=== PATIENT | male | born 1985 | race Caucasian/White ===

== ENCOUNTER 2020-12-26 20:26 | Inpatient (IN) | payer OTHER ==
[2020-12-26 20:45] VITALS: BMI 23.0
[2020-12-26] MEDS ORDERED: ONDANSETRON *ODT* 4 MG TABLET SL PRN (22:02)
[2020-12-26] MEDS ORDERED: NICOTINE POLACRILEX 2 MG GUM BUC PRN (22:02)
[2020-12-26] MEDS ORDERED: MENTHOL/PHENOL 1 EACH UD MM PRN (22:02)
[2020-12-26] MEDS ORDERED: MAGNESIUM HYDROX 2400MG/30ML ORAL SUSPENSION 30 ML CUP PO PRN (22:02)
[2020-12-26] MEDS ORDERED: MAG HYDROX/AL HYDROX/SIMETH 30 ML UNIT-DOSE CUP PO PRN (22:02)
[2020-12-26] MEDS ORDERED: IBUPROFEN 400 MG TABLET (FP) PO PRN (22:02)
[2020-12-26] MEDS ORDERED: MAGNESIUM CITRATE 300 ML BOTTLE PO PRN (22:02)
[2020-12-26] MEDS ORDERED: BISMUTH SUBSALICYLATE 524 MG/30 ML PO PRN (22:02)
[2020-12-26] MEDS ORDERED: ACETAMINOPHEN 325 MG TABLET (FP) PO PRN ×2 (22:02)
[2020-12-26] MEDS ORDERED: methaDONE HCL 10 MG TABLET (FOR DETOX USE ONLY) PO ONE (22:04)
[2020-12-26] MEDS ORDERED: cloNIDine HCL 0.1 MG TABLET PO PRN (22:04)
[2020-12-26] MEDS: METHOCARBAMOL 500 MG TABLET PO PRN (23:10)
[2020-12-26] MEDS: hydrOXYzine PAMOATE 25 MG CAPSULE (FP) PO PRN (23:10)
[2020-12-27] MEDS ORDERED: methaDONE HCL 10 MG TABLET (FOR DETOX USE ONLY) ONE (09:28)
[2020-12-27] MEDS: PRENATAL VITAMINS W/ FOLIC ACID TABLET (FP) PO SCH (10:23)
[2020-12-27] MEDS: hydrOXYzine PAMOATE 25 MG CAPSULE (FP) PO PRN ×2 (10:23→22:09)
[2020-12-27] MEDS: METHOCARBAMOL 500 MG TABLET PO PRN (10:23)
[2020-12-27] MEDS: diazePAM 5 MG TABLET PO PRN ×3 (10:25→22:08)
[2020-12-27 10:32] LABS: ALBUMIN 3.3 g/dl (3.4-5.0); BLOOD UREA NITROGEN 13.7 mg/dL (7-18); HEMATOCRIT 41.4 % (35.4-49); HEMOGLOBIN 13.8 GM/dL (11.7-16.9); MCH 31.7 pg (25.7-33.7); MCHC 33.4 g/dl (32.0-35.9); MEAN CELL VOLUME 94.8 fl (80-96); MEAN PLT VOLUME 8.8 fl (7.5-11.1); PLATELET COUNT 206 10^3/uL (134-434); RBC 4.36 M/mm3 (4.00-5.60); RDW 13.2 % (11.9-15.9); WHITE BLOOD COUNT 7.3 K/mm3 (4.0-10.0)
[2020-12-27 10:36] LABS: BILIRUBIN,TOTAL 0.2 mg/dL (0.2-1); TOT PROT 6.3 g/dl (6.4-8.2)
[2020-12-27] MEDS: MELATONIN 5 MG TABLETS PO SCH (22:09)
[2020-12-27] MEDS: THIAMINE HCL 100 MG TABLET (FP) PO SCH (22:09)
[2020-12-28] MEDS ORDERED: methaDONE HCL 10 MG TABLET (FOR DETOX USE ONLY) PO ONE (10:00)
[2020-12-28] MEDS: PRENATAL VITAMINS W/ FOLIC ACID TABLET (FP) PO SCH (10:09)
[2020-12-28] MEDS: NICOTINE 10 MG CARTRIDGE (INHALER) IH PRN ×2 (12:51→22:36)
[2020-12-28] MEDS: THIAMINE HCL 100 MG TABLET (FP) PO SCH (22:37)
[2020-12-28] MEDS: MELATONIN 5 MG TABLETS PO SCH (22:37)
[2020-12-28] MEDS: diazePAM 5 MG TABLET PO PRN (22:40)
[2020-12-29] MEDS ORDERED: methaDONE HCL 10 MG TABLET (FOR DETOX USE ONLY) ONE (08:53)
[2020-12-29] MEDS: PRENATAL VITAMINS W/ FOLIC ACID TABLET (FP) PO SCH (09:39)
[2020-12-29] MEDS: NICOTINE 10 MG CARTRIDGE (INHALER) IH PRN ×2 (15:56→22:25)
[2020-12-29] MEDS: THIAMINE HCL 100 MG TABLET (FP) PO SCH (22:26)
[2020-12-29] MEDS: diazePAM 5 MG TABLET PO PRN (22:26)
[2020-12-29] MEDS: MELATONIN 5 MG TABLETS PO SCH (22:26)
[2020-12-29] MEDS: METHOCARBAMOL 500 MG TABLET PO PRN (22:27)
[2020-12-29] MEDS: hydrOXYzine PAMOATE 25 MG CAPSULE (FP) PO PRN (22:27)
[2020-12-30] MEDS: diazePAM 5 MG TABLET PO PRN (09:01)
[2020-12-30] MEDS ORDERED: methaDONE HCL 10 MG TABLET (FOR DETOX USE ONLY) PO ONE (10:00)
[2020-12-30] MEDS: METHOCARBAMOL 500 MG TABLET PO PRN (10:13)
[2020-12-30] MEDS: PRENATAL VITAMINS W/ FOLIC ACID TABLET (FP) PO SCH (10:14)
[2020-12-30] MEDS: hydrOXYzine PAMOATE 25 MG CAPSULE (FP) PO PRN (14:29)
[2020-12-30] MEDS: MELATONIN 5 MG TABLETS PO SCH (22:27)
[2020-12-30] MEDS: THIAMINE HCL 100 MG TABLET (FP) PO SCH (22:27)
[2020-12-31 08:42] VITALS: BP 117/62; PULSE 71; TEMP 96.8
[2020-12-31] MEDS: NICOTINE 10 MG CARTRIDGE (INHALER) IH PRN (09:16)
[2020-12-31] MEDS: PRENATAL VITAMINS W/ FOLIC ACID TABLET (FP) PO SCH (09:59)
== END 2020-12-31 11:41 | disposition other institution (70) | DRG 773 ==
LOC: YASAS 20:26 → Y6N 21:51 → Y3N 22:19
PROVIDERS: ADMIT Allergy & Immunology; ATTEND Allergy & Immunology
PROC: HZ2ZZZZ Detoxification Services for Substance Abuse Treatment (ICD-10-PCS; principal; 2020-12-26)
DX: F11.23 Opioid dependence with withdrawal (principal); F14.20 Cocaine dependence, uncomplicated; F18.288 Inhalant dependence with other inhalant-induced disorder; F16.20 Hallucinogen dependence, uncomplicated; F12.20 Cannabis dependence, uncomplicated; F17.210 Nicotine dependence, cigarettes, uncomplicated; F19.24 Other psychoactive substance dependence with psychoactive substance-induced mood disorder; Z86.59 Personal history of other mental and behavioral disorders; Z91.14 Patient's other noncompliance with medication regimen; Z59.00 Homelessness unspecified; Z56.0 Unemployment, unspecified
CPT/HCPCS: 36415; 80053; 85027; 86780; 93005; 93010; C9803; U0003; U0005

== ENCOUNTER 2020-12-31 11:46 | Inpatient (IN) | payer OTHER ==
[2020-12-31] MEDS ORDERED: guaiFENesin 200 MG/10 ML 10 ML UNIT-DOSE CUPS PO PRN (12:10)
[2020-12-31] MEDS ORDERED: LOPERAMIDE HCL 2 MG CAPSULE PO PRN (12:10)
[2020-12-31] MEDS ORDERED: ACETAMINOPHEN 325 MG TABLET (FP) PO PRN (12:10)
[2020-12-31] MEDS ORDERED: MAG HYDROX/AL HYDROX/SIMETH 30 ML UNIT-DOSE CUP PO PRN (12:10)
[2020-12-31] MEDS ORDERED: P-EPHED 60MG/TRIPROLIDI 2.5MG TABLET PO PRN (12:10)
[2020-12-31] MEDS ORDERED: MAGNESIUM CITRATE 300 ML BOTTLE PO PRN (12:10)
[2020-12-31] MEDS ORDERED: IBUPROFEN 400 MG TABLET (FP) PO PRN (12:10)
[2020-12-31] MEDS ORDERED: MENTHOL/PHENOL 1 EACH UD MM PRN (12:10)
[2020-12-31] MEDS ORDERED: MAGNESIUM HYDROX 2400MG/30ML ORAL SUSPENSION 30 ML CUP PO PRN (12:10)
[2020-12-31] MEDS: NICOTINE 10 MG CARTRIDGE (INHALER) IH PRN (17:59)
[2020-12-31] MEDS: THIAMINE HCL 100 MG TABLET (FP) PO SCH (21:18)
[2020-12-31] MEDS: MELATONIN 5 MG TABLETS PO SCH (21:18)
[2021-01-01] MEDS: NICOTINE 10 MG CARTRIDGE (INHALER) IH PRN (10:31)
[2021-01-01] MEDS: PRENATAL VITAMINS W/ FOLIC ACID TABLET (FP) PO SCH (10:31)
[2021-01-01] MEDS ORDERED: FLU VACC QS2021-22(6MOS UP)/PF 60 MCG/0.5 ML SYRINGE IM ONE (12:00)
[2021-01-01 12:13] LABS: HIV INTERPRETATION NEGATIVE (NEGATIVE)
[2021-01-01] MEDS: MELATONIN 5 MG TABLETS PO SCH (21:07)
[2021-01-01] MEDS: THIAMINE HCL 100 MG TABLET (FP) PO SCH (21:07)
[2021-01-02] MEDS: PRENATAL VITAMINS W/ FOLIC ACID TABLET (FP) PO SCH (11:15)
[2021-01-02] MEDS: NICOTINE 10 MG CARTRIDGE (INHALER) IH PRN (11:15)
[2021-01-02] MEDS ORDERED: SUVOREXANT 10 MG TABLET PO ONE (21:39)
[2021-01-02] MEDS: THIAMINE HCL 100 MG TABLET (FP) PO SCH (21:39)
[2021-01-02] MEDS: SUVOREXANT 10 MG TABLET PO PRN (21:39)
[2021-01-03] MEDS: NICOTINE 10 MG CARTRIDGE (INHALER) IH PRN ×2 (10:00→21:07)
[2021-01-03] MEDS: PRENATAL VITAMINS W/ FOLIC ACID TABLET (FP) PO SCH (10:00)
[2021-01-03] MEDS: SUVOREXANT 10 MG TABLET PO PRN (21:07)
[2021-01-03] MEDS: THIAMINE HCL 100 MG TABLET (FP) PO SCH (21:07)
[2021-01-04] MEDS: PRENATAL VITAMINS W/ FOLIC ACID TABLET (FP) PO SCH (10:25)
[2021-01-04] MEDS: THIAMINE HCL 100 MG TABLET (FP) PO SCH (21:45)
[2021-01-04] MEDS: SUVOREXANT 10 MG TABLET PO PRN (21:46)
[2021-01-05] MEDS: PRENATAL VITAMINS W/ FOLIC ACID TABLET (FP) PO SCH (09:56)
[2021-01-05] MEDS: THIAMINE HCL 100 MG TABLET (FP) PO SCH (21:09)
[2021-01-05] MEDS: SUVOREXANT 10 MG TABLET PO PRN (21:10)
[2021-01-06] MEDS: PRENATAL VITAMINS W/ FOLIC ACID TABLET (FP) PO SCH (10:31)
[2021-01-06] MEDS: NICOTINE 10 MG CARTRIDGE (INHALER) IH PRN (10:31)
[2021-01-06] MEDS: THIAMINE HCL 100 MG TABLET (FP) PO SCH (21:27)
[2021-01-06] MEDS: SUVOREXANT 10 MG TABLET PO PRN (21:28)
[2021-01-07] MEDS ORDERED: NALTREXONE HCL 50 MG TABLET PO SCH (10:00)
[2021-01-07] MEDS: PRENATAL VITAMINS W/ FOLIC ACID TABLET (FP) PO SCH (10:04)
[2021-01-07] MEDS: SUVOREXANT 10 MG TABLET PO PRN (21:06)
[2021-01-07] MEDS: THIAMINE HCL 100 MG TABLET (FP) PO SCH (21:06)
[2021-01-08] MEDS: NALTREXONE HCL 50 MG TABLET PO SCH (10:33)
[2021-01-08] MEDS: PRENATAL VITAMINS W/ FOLIC ACID TABLET (FP) PO SCH (10:33)
[2021-01-08] MEDS: SUVOREXANT 10 MG TABLET PO PRN (21:39)
[2021-01-08] MEDS: THIAMINE HCL 100 MG TABLET (FP) PO SCH (21:41)
[2021-01-09] MEDS: PRENATAL VITAMINS W/ FOLIC ACID TABLET (FP) PO SCH (10:04)
[2021-01-09] MEDS: NALTREXONE HCL 50 MG TABLET PO SCH (10:04)
[2021-01-09] MEDS: THIAMINE HCL 100 MG TABLET (FP) PO SCH (21:09)
[2021-01-09] MEDS: SUVOREXANT 10 MG TABLET PO PRN (21:09)
[2021-01-10] MEDS ORDERED: NALTREXONE MICROSPHERES (VIVITROL) 380 MG DISP.SYRIN IM ONE (10:00)
[2021-01-10] MEDS: PRENATAL VITAMINS W/ FOLIC ACID TABLET (FP) PO SCH (10:45)
[2021-01-10] MEDS: NICOTINE 10 MG CARTRIDGE (INHALER) IH PRN (21:27)
[2021-01-10] MEDS: SUVOREXANT 10 MG TABLET PO PRN (21:27)
[2021-01-10] MEDS: THIAMINE HCL 100 MG TABLET (FP) PO SCH (21:27)
[2021-01-11] MEDS: PRENATAL VITAMINS W/ FOLIC ACID TABLET (FP) PO SCH (10:12)
[2021-01-11] MEDS ORDERED: hydrOXYzine PAMOATE 25 MG CAPSULE (FP) PO PRN (12:52)
[2021-01-11] MEDS: THIAMINE HCL 100 MG TABLET (FP) PO SCH (21:22)
[2021-01-11] MEDS: SUVOREXANT 10 MG TABLET PO PRN (21:23)
[2021-01-11] MEDS: NICOTINE 10 MG CARTRIDGE (INHALER) IH PRN (21:23)
[2021-01-12] MEDS: PRENATAL VITAMINS W/ FOLIC ACID TABLET (FP) PO SCH (10:55)
[2021-01-12] MEDS: THIAMINE HCL 100 MG TABLET (FP) PO SCH (21:31)
[2021-01-12] MEDS: SUVOREXANT 10 MG TABLET PO PRN (21:32)
[2021-01-13 06:58] VITALS: BP 125/88; PULSE 86; TEMP 98.6
[2021-01-13] MEDS: NICOTINE 10 MG CARTRIDGE (INHALER) IH PRN (10:45)
[2021-01-13] MEDS: PRENATAL VITAMINS W/ FOLIC ACID TABLET (FP) PO SCH (10:46)
[2021-01-13] MEDS ORDERED: SELENIUM SULFIDE 2.5% LOTION 4 OZ. TP SCH (12:15)
== END 2021-01-13 14:48 | disposition home or self-care (01) | DRG 772 ==
LOC: YASAS 11:46 → Y3W 11:47
PROVIDERS: ADMIT Allergy & Immunology; ATTEND Allergy & Immunology
PROC: HZ42ZZZ Group Counseling for Substance Abuse Treatment, Cognitive-Behavioral (ICD-10-PCS; principal; 2020-12-31)
DX: F11.20 Opioid dependence, uncomplicated (principal); F14.20 Cocaine dependence, uncomplicated; F16.10 Hallucinogen abuse, uncomplicated; F17.210 Nicotine dependence, cigarettes, uncomplicated; F19.282 Other psychoactive substance dependence with psychoactive substance-induced sleep disorder; Y04.0XXA Assault by unarmed brawl or fight, initial encounter; Y93.9 Activity, unspecified; Y92.239 Unspecified place in hospital as the place of occurrence of the external cause; Z56.0 Unemployment, unspecified; Z59.00 Homelessness unspecified
CPT/HCPCS: 36415; 87389; 90686; G0008; J2315